=== PATIENT | female | born 1985 | race Two or more races ===

== ENCOUNTER 2018-02-09 09:43 | Emergency (ER) | payer OTHER ==
[~2018-02-09] VITALS: Ht 160 cm; Wt 85.3 kg
[2018-02-09 10:00] VITALS: BP 141/94
== END 2018-02-09 10:39 | disposition home or self-care (01) ==
LOC: ER 09:43
DX: S61.200A Unspecified open wound of right index finger without damage to nail, initial encounter (principal); W23.0XXA Caught, crushed, jammed, or pinched between moving objects, initial encounter; Y93.89 Activity, other specified; Y99.8 Other external cause status; Y92.89 Other specified places as the place of occurrence of the external cause
CPT/HCPCS: 73140